=== PATIENT | male | born 1985 | race Caucasian/White ===

== ENCOUNTER → 2018-11-17 09:49 | Outpatient (CLI) | payer OTHER, SELFPAY ==
--- NOTE | 2018-11-17 | DI.MRI.S_ITS ---
PROCEDURE: MR KNEE LT WO CON INDICATIONS: LT KNEE PAIN TECHNIQUE: Noncontrast sagittal PD fast spin echo and T2 fast spin echo with fat saturation, sagittal 3-D FLASH with fat saturation; coronal T1 spin echo and PD fast spin echo with fat saturation, and axial PD fast spin echo with fat saturation through the knee. COMPARISON: None. FINDINGS: Image quality: Diagnostic. Bones and joint: There is no acute fracture or dislocation. No suspicious osseous lesions are evident. There is a small knee joint effusion without significant fluid extending into a Oneal's cyst. The hyaline articular cartilage throughout the knee appears to be intact. No definite full-thickness cartilaginous defects are appreciated. There is slight heterogeneity of the hyaline articular cartilage within the medial tibiofemoral compartment and to a lesser degree within the lateral compartment. Cruciate ligaments: The anterior and posterior cruciate ligaments are intact. Menisci: Low-grade partial-thickness tearing involving the posterior root of the medial meniscus is identified. The medial meniscus is otherwise intact and unremarkable. The lateral meniscus is within normal limits. Medial structures: The medial collateral ligament is intact. The semimembranosus tendon insertion is intact. The imaged portions of the pes anserinus tendons are unremarkable. No significant fluid is contained within the pes anserinus bursa. Lateral structures: The popliteal tendon is thickened and edematous at its origin. The lateral collateral ligament proper (fibular collateral ligament) and the proximal tibiofibular ligaments are intact. The distal aspect of the biceps femoris tendon and the iliotibial band are intact. Anterior structures: The quadriceps and patellar tendons are intact. There is mild increased signal involving the proximal aspect of the patellar tendon. Minimal prepatellar bursal thickening is present. There is no significant edema in the infrapatellar fat pad. IMPRESSION: 1. The partial-thickness tear of the posterior root of the medial meniscus. 2. Mild proximal popliteal tendinopathy. 2. Mild patellar tendinopathy. 4. Small knee joint effusion. 5. Heterogeneity of the hyaline articular cartilage within the knee without a definite full-thickness cartilaginous defect appreciated. Dictated by: Sriram Becker M.D. on 11/17/2018 at 10:56 Approved by: Sriram Becker M.D. on 11/17/2018 at 10:59
== END ==
PROVIDERS: Visit Provider General Practice
DX: M25.562 Pain in left knee (principal); S83.242A Other tear of medial meniscus, current injury, left knee, initial encounter; M25.462 Effusion, left knee; M67.962 Unspecified disorder of synovium and tendon, left lower leg
CPT/HCPCS: 73721

== ENCOUNTER 2019-02-06 22:00 | Emergency (ER) | payer OTHER, SELFPAY ==
[2019-02-06 22:07] VITALS: BP 139/87; PULSE 84; RESP 14; TEMP 36.7; O2SAT 99; BMI 28.0
--- NOTE | 2019-02-06 22:44 | ED.LOWEXIN ---
HPI - Extremity Injury (Lower) General Chief Complaint: Extremity Injury, Lower Stated Complaint: Hurt left leg Time Seen by Provider: 02/06/19 22:44 Source: patient Mode of arrival: Ambulatory Limitations: no limitations History of Present Illness HPI Narrative: This is a 33-year-old male comes in with complaint of pain in his left leg. Patient states he was playing football today. He planted his right foot and was pushing off on his left foot when he felt a pop in the calf Achilles tendon region. He states it feels similar although worse than when he ruptured his Achilles tendon on the right leg in April. Patient states he noticed a little bit of swelling. No bruising. He states that he can dorsiflex and plantar flex not as far as the other foot but he can move it. He denies any numbness or tingling. He denies any other injuries. Patient denies any other medical problems. Related Data Allergies Allergy/AdvReac Type Severity Reaction Status Date / Time No Known Drug Allergies Allergy Verified 02/06/19 22:09 Review of Systems Review of Systems ROS Unobtainable: All systems reviewed & are unremarkable except as noted in HPI and below Patient History tobacco type: smokeless tobacco Substance Use Type: does not use Exam Narrative Exam Narrative: GENERAL: Alert and oriented x three, well-nourished male in mild distress. HEENT: Head normocephalic, atraumatic, EOMI, pupils reactive, face symmetric, moist mucous membranes NECK: Supple, full range of motion EXTREMITIES: Normal range of motion of left leg except for the foot. Patient does have dorsiflexion and plantar flexion actively. It is decreased in comparison to his right leg but is very much present. Patient does not have any numbness. He has no bony tenderness of the left lower extremity, patient has 2+ dorsalis pedis. I am able to palpate the Achilles tendon he does have tenderness when I do this particularly more proximal to the calf, no clubbing there is some edema of the calf. No bruising.. Neurovascularly intact NEUROLOGICAL: Cranial nerves II through XII grossly intact. Moving all extremities SKIN: Warm, dry, no petechiae, no rashes or lesions. Initial Vital Signs Initial Vital Signs: Vital Signs Temperature 98.1 F 02/06/19 22:07 Pulse Rate 84 02/06/19 22:07 Respiratory Rate 14 02/06/19 22:07 Blood Pressure 139/87 02/06/19 22:07 Pulse Oximetry 99 02/06/19 22:07 Course Orders Ordered: Discontinued Medications Ketorolac Tromethamine (Toradol) 30 mg IM NOW ONE Stop: 02/06/19 22:51 Last Admin: 02/06/19 23:13 Dose: 30 mg Documented by: BILLY Vital Signs Vital signs: Vital Signs - 8 hr 02/06/19 22:07 02/06/19 23:39 Temperature 98.1 F Pulse Rate 84 70 Respiratory Rate 14 16 Blood Pressure 139/87 130/72 Pulse Oximetry 99 97 MDM - Extremity Injury (Lower) MDM Narrative Medical decision making narrative: Spoke with Dr. Simon patient can follow in the office, asks for patient to call Monday. Given rx for MRI but will likely need assistance getting scheduled. Plan for splint, non-weight baring with crutches. Patient given strict instructions but was walking on it in the department even after. Discharge Plan Departure Patient Disposition: Home Clinical Impression: Achilles rupture, left Qualifiers: Encounter type: initial encounter Qualified Code(s): S86.012A - Strain of left Achilles tendon, initial encounter Discharge Date/Time: 02/06/19 23:39 Instructions: DI for Achilles Tendon Rupture Activity Restrictions/Additional Instructions: I suspect you have a partial tear of your Achilles tendon or calf muscle. Follow-up with Orthopedic surgery, call Monday for an appointment. Also ask the office about getting set up for an MRI, they will need to help you schedule this. You may also take ibuprofen up to 800 mg every 8 hours as needed for pain. You may take tylenol up 1000mg every 8 hours. No weight-bearing on left lower extremity until cleared by Orthopedic surgery. Splint Care: Keep splint clean and dry. Elevated affected body part to decrease swelling. OK to use ice pack on the affected body part. Use for 15-20 minutes each time, for 5-6x per day. If you develop worsening pain, numbness, tingling, discoloration of the affected body part, loosen the splint by loosening the GALE wrap, and either see your doctor for an urgent re-assessment, or return to the Emergency Department. Return to the Emergency Department for any new or worsening symptoms. Referrals: Tad Simon MD [Physician] -
[2019-02-06] MEDS: KETOROLAC 60 MG/2 ML VIAL 30 MG IM (23:13)
[2019-02-06 23:39] VITALS: BP 130/72; PULSE 70; RESP 16; O2SAT 97
== END 2019-02-06 23:39 | disposition home or self-care (01) ==
PROVIDERS: Emergency Provider Emergency Medicine
DX: S86.012A Strain of left Achilles tendon, initial encounter (principal); Y93.61 Activity, american tackle football
CPT/HCPCS: 29515; 29580; 96372; 99283; J1885

== ENCOUNTER → 2019-02-14 19:31 | Outpatient (CLI) | payer OTHER, SELFPAY ==
--- NOTE | 2019-02-14 19:32 | DI.MRI.S_ITS ---
PROCEDURE: MR LOWER LEG LT WO CON COMPARISON: None. INDICATIONS: INJURY OF LEFT LOWER LEG FINDINGS: Multiplanar and multisequence MR images of left lower leg were obtained with IV contrast infusion. Bones and joints: There is no marrow edema. No acute fracture or dislocation. No suspicious bony lesion. Soft tissues: There is full-thickness rupture involving the distal Achilles tendon 6 cm from its insertion on the posterior calcaneus with proximal retraction of torn tendon fibers and a 1.4 cm fluid Gap at the site of rupture. Gastrocnemius muscle and soleus muscle show normal signal. The extensor muscle groups are intact. IMPRESSION: 1. Findings consistent with full-thickness rupture of distal Achilles tendon 6 cm from its insertion a posterior calcaneus with 1.4 cm proximal retraction of torn tendon fibers and a fluid-filled gap at the site of rupture. 2. No marrow edema. No fracture or dislocation. 3. No gross lower leg muscle signal abnormality. Dictated by: Steven Deleon M.D. on 02/15/2019 at 16:42 Approved by: Steven Deleon M.D. on 02/15/2019 at 16:54
== END ==
PROVIDERS: Visit Provider Family Medicine
DX: S86.012A Strain of left Achilles tendon, initial encounter (principal); X58.XXXA Exposure to other specified factors, initial encounter
CPT/HCPCS: 73718